=== PATIENT | female | born 1945 | race Caucasian/White ===

== ENCOUNTER 2017-03-13 12:11 | Emergency (ER) | payer MEDICARE ==
[~2017-03-13] VITALS: Ht 165.1 cm; Wt 76.2 kg
[~2017-03-13 12:11] MED LIST: ACET650S12 PR; BACL-19 PO; CETI10CA PO; GABA300C10 PO; LISI20TA PO; MELO15TA24 PO; METO-93 PO; METO-95 PO; MONT5TAB6 PO; MONT5TAB9 PO; OMEP-110 PO; PREG75CA PO; ROSU5TAB PO; TRAM50TA2 PO; ZOLP10TA PO
[2017-03-13] MEDS ORDERED: SODIUM CHLORIDE 0.9% 1,000ML IVBOLUS ONE (13:00)
[2017-03-13] MEDS ORDERED: SODIUM CHLORIDE FLUSH 10ML SYR IVF ONE (13:00)
[2017-03-13 13:03] LABS: HEMATOCRIT 44.5 % (34.6-47.8); HEMOGLOBIN 14.9 g/dL (11.7-16.4); WHITE BLOOD COUNT 7.1 x10^3/uL (3.4-10)
[2017-03-13 13:14] LABS: BLOOD UREA NITROGEN 14 mg/dL (7-18)
[2017-03-13 15:40] LABS: RAPID INFLUENZA A Negative (Negative); RAPID INFLUENZA B Negative (Negative)
[2017-03-13] MEDS ORDERED: hydrALAzine 20 MG/ML, 1ML IV ONE (17:00)
[2017-03-13] MEDS ORDERED: OMNIPAQUE 350 MG/ML, 100ML BOTTLE ONE (17:20)
[2017-03-13] MEDS ORDERED: hydrALAzine 20 MG/ML, 1ML ONE (17:48)
[2017-03-13 18:09] VITALS: BP 164/87
== END 2017-03-13 19:00 | disposition home or self-care (01) ==
LOC: ED 15:38
DX: J18.9 Pneumonia, unspecified organism (principal); I10 Essential (primary) hypertension
CPT/HCPCS: 36415; 71020; 71275; 80048; 82040; 85025; 87400; 96374; 99285; J0360; J7030; Q9967

== ENCOUNTER 2020-11-05 10:30 | Day surgery (SDC) | payer MEDICARE ==
[~2020-11-05] VITALS: Ht 165.1 cm; Wt 67.9 kg
[~2020-11-05 10:30] MED LIST changes: +ALBU18HF INH; +ALBU2.5V NEB; +CHOL5000 PO; +DEXL60CA2 PO; +HYDROCHLOROTH12.5 MG PO; +LISI40TA9 PO; +METO100T5 PO; +MONT10TA17 PO; +MONT5TAB16 PO; -MONT5TAB9 PO; +SITA1TAB PO; +TRAZ-175 PO
[2020-11-05] MEDS ORDERED: LACTATED RINGERS 1,000 ML IV SCH (11:00)
[2020-11-05] MEDS ORDERED: CHLORHEXIDINE 15 ML UDC PO ONE (11:00)
[2020-11-05] MEDS ORDERED: ZOLP-413 PO (11:04)
[2020-11-05] MEDS ORDERED: CHLORHEXIDINE 15 ML UDC ONE (11:11)
[2020-11-05 11:22] VITALS: BP 145/77
[2020-11-05] MEDS ORDERED: PLEASE ENTER HEIGHT AND WEIGHT MC SCH (11:30)
[2020-11-05 11:31] LABS: ALBUMIN 3.6 g/dL (3.4-5.0); CALCIUM 9.6 mg/dL (8.5-10.1)
[2020-11-05 11:35] LABS: ALANINE AMINOTRANSFERASE 23 U/L (12-78); ALKALINE PHOSPHATASE 63 U/L (45-117); BILIRUBIN,TOTAL 0.6 mg/dL (0.2-1.0); CREATININE 0.97 mg/dL (0.55-1.02); TOTAL PROTEIN 7.4 g/dL (6.4-8.2)
[2020-11-05] MEDS ORDERED: PROPOFOL 10 MG/ML, 20ML ONE (11:37)
[2020-11-05 11:43] LABS: ANION GAP 7 mmol/L (5-15); CHLORIDE 107 mmol/L (98-107)
[2020-11-05] MEDS ORDERED: FENTANYL PF 100 MCG/2ML IV PRN (12:00)
[2020-11-05] MEDS ORDERED: LABETALOL 5MG/ML, 20ML IV PRN (12:00)
[2020-11-05] MEDS ORDERED: ALBUTEROL SULFATE 2.5 MG/3 ML NPPB PRN (12:00)
[2020-11-05] MEDS ORDERED: ACETAMINOPHEN 325 MG TABLET PO PRN (12:00)
[2020-11-05] MEDS ORDERED: OXYcodone 5 MG/5 ML ORAL.SOL UDC PO PRN (12:00)
[2020-11-05] MEDS ORDERED: ONDANSETRON 2MG/ML, 2ML IVPush PRN (12:00)
== END 2020-11-05 12:50 | disposition home or self-care (01) ==
LOC: OUT 10:30
PROVIDERS: ATTEND Internal Medicine Geriatric Medicine
DX: K21.9 Gastro-esophageal reflux disease without esophagitis (principal); I10 Essential (primary) hypertension; E11.9 Type 2 diabetes mellitus without complications; E78.5 Hyperlipidemia, unspecified; J45.909 Unspecified asthma, uncomplicated; Z79.84 Long term (current) use of oral hypoglycemic drugs; Z79.899 Other long term (current) drug therapy; Z87.19 Personal history of other diseases of the digestive system; Z88.8 Allergy status to other drugs, medicaments and biological substances; Z98.890 Other specified postprocedural states
CPT/HCPCS: 36415; 43235; 80053; 93005; J7120; J2704